=== PATIENT | female | born 1990 | race Caucasian/White ===

== ENCOUNTER 2017-03-21 08:57 | Emergency (ER) | payer OTHER | END 2017-03-21 10:01 | disposition home or self-care (01) | LOC: M ED 08:57 | DX: M54.14 Radiculopathy, thoracic region (principal); M54.16 Radiculopathy, lumbar region; M62.830 Muscle spasm of back; W10.9XXA Fall (on) (from) unspecified stairs and steps, initial encounter; Y92.89 Other specified places as the place of occurrence of the external cause; J45.909 Unspecified asthma, uncomplicated; F41.9 Anxiety disorder, unspecified; F33.9 Major depressive disorder, recurrent, unspecified | CPT/HCPCS: 99282 ==